=== PATIENT | female | born 2005 | race Caucasian/White ===

== ENCOUNTER 2023-01-06 13:10 | Emergency (ER) | payer OTHER, SELFPAY ==
--- NOTE | ~2023-01-06 | XR_ITS ---
EXAMINATION: XR CHEST CLINICAL INFORMATION: Vomiting. Rule out aspiration. COMPARISON: Chest x-ray 12/05/2018 TECHNIQUE: 2 views of the chest were obtained. FINDINGS: Cardiac silhouette is normal in size. The lungs are adequately aerated. Subtle bibasilar opacities. No lobar consolidation. No pleural effusion or pneumothorax. Surgical clips project over the superior mediastinum. No acute osseous abnormality. XR/XR chest 2V IMPRESSION: Subtle bibasilar opacities are nonspecific but suspected to represent atelectasis.
[2023-01-06 13:45] VITALS: BP 117/79; PULSE 101; RESP 18; TEMP 36.6; O2SAT 95; BMI 29.1
--- NOTE | 2023-01-06 13:47 | ED_ITS ---
HPI - General Adult General Chief complaint: Weakness Stated complaint: vomiting seizure Time Seen by Provider: 01/06/23 18:38 Source: family Mode of arrival: ambulatory Limitations: other (Developmental delay) History of Present Illness HPI narrative: 17-year-old female presents from school today with nausea vomiting and possible seizure. Patient was noted to be slightly lethargic. There is no witnessed tonic-clonic activity. Patient's symptoms are moderate to severe in nature. There is no clear relieving or exacerbating features. Patient is compliant with her medications. Mother reports color and demeanor are improving. She is not sure with the child had a seizure or not. Patient is in between providers at this point transitioning from pediatrics to primary care. She is also looking for a neurologist. Related Data Previous Rx's Medication Instructions Recorded Depakote 125 mg tablet,delayed 750 mg PO BID 30 days #360 tabs 01/06/23 release (divalproex) ondansetron 4 mg disintegrating 4 mg PO Q8H PRN nausea and 01/06/23 tablet vomiting #10 tabs Allergies Allergy/AdvReac Type Severity Reaction Status Date / Time blue dye AdvReac Itching Verified 01/06/23 14:10 kiwi AdvReac Itching Verified 01/06/23 14:10 latex AdvReac Itching Verified 01/06/23 14:10 lorazepam [From Ativan] AdvReac Itching Verified 01/06/23 14:10 jennifer AdvReac Itching Verified 01/06/23 14:10 melatonin AdvReac Itching Verified 01/06/23 14:10 pineapple AdvReac Itching Verified 01/06/23 14:10 red dye AdvReac Itching Verified 01/06/23 14:10 sulfur dioxide AdvReac Itching Verified 01/06/23 14:10 Review of Systems Review of Systems: Yes Unobtainable due to mental status PMFSH Social History Social History Alcohol intake: never Smoked in Last 30 Days: No Use of substances other than those prescribed or required for medical reasons: No Advance Directives: No Advance Directives Information Provided: Yes Physical Exam ED Vital Signs: Vital Signs - 24 hr 01/06/23 13:45 01/06/23 18:52 01/06/23 20:04 Temperature 98 F Pulse Rate 101 H 112 H 107 H Respiratory Rate 18 16 16 Blood Pressure 117/79 116/86 114/88 Pulse Oximetry 95 98 Oxygen Delivery Method Room Air BMI result Body Mass Index 29.1 GEN: Alert, syndrome attic appearing HEENT: Normocephalic, atraumatic, normal external ears, nose appears normal, no oropharyngeal edema or exudates Eyes: Normal to appearance Neck: Supple, no lymphadenopathy Respiratory: CTAB Cardiovascular: Regular rate and rhythm, no murmurs rubs or gallops Abdomen: Soft, nontender, nondistended, no guarding, no rebound Back: No CVA tenderness Extremities: No clubbing cyanosis or edema Neurologic: No focal neurologic deficits Skin: No rash Course Course Course Narrative: This is an RME: Additional HPI, ROS, PE not included below will be deferred to primary provider. This is a 43-khif-zcw-female, past medical history seizure disorder on Depakote and developmental delay, presenting to the emergency department for evaluation of lethargy and nausea/vomiting since today. Per mother patient was feeling well over the last couple a days, had a yogurt this morning for breakfast and went to the school. Mother received a phone call from the school nurse at 10:00AM reporting that patient was tired and was vomiting. Mother states that there is a recent medication changes in Depakote - reporting that she has not been taking brand-name but rather generic form of Depakote for the last 2 weeks. There is no report of any known seizure today. Patient is actively vomiting in triage, medicated with Zofran ODT. Pupils are dilated. Mother reports that patient is typically active but however reports she has been very tired since she picked her up from school. Plan: Labs, Zofran 4mg, chest x-ray. 1630 - pt re-evaluated, appears to be more awake, pupils less dilated. Unable to get blood work from patient. Reevaluation(s) Reevaluation #1: Patient is tolerating oral intake well. We attempted to place an IV. We are unsuccessful. We were able to get a chemistry panel and will attempt to get Depakote and Lamictal levels. I have also sent prescription to the patient's pharmacy for 1 month supply of brand-name Depakote. Time: 20:07 Reevaluation #2: Difficult level was appropriate. Patient was able to orally hydrate. We discussed keeping the patient here for an attempt to provide intravenous hydration however, child did not appear to require this. Mother preferred to take her home. She was given a prescription for Depakote brand name only. She was referred to Neurology. Time: 21:32 Medications Administered Discontinued Medications Generic Name Dose Route Start Last Admin Trade Name Gladys PRN Reason Stop Dose Admin Lidocaine HCl 1 appl 01/06/23 14:12 01/06/23 14:30 Lidocaine 4 % Cream Kit TOPICAL 01/06/23 14:13 1 appl ONCE ONE Administration Protocol Ondansetron HCl 4 mg 01/06/23 14:02 01/06/23 14:12 Ondansetron Odt 4 Mg Tab.Rapdis TRANSLINGU 01/06/23 14:03 4 mg ONCE ONE Administration Medical Decision Making Medical Decision Making [facility] Narrative: 17-year-old female with history of seizure disorder, developmental delay presents with possible seizure. Patient had episodes of emesis earlier today. Her mental status is improving close to baseline. Examination revealed no focal deficits. Abdomen was soft and nontender. He has had a difficult time obtaining intravenous access. Patient will orally hydrate. Will send off lab work from a straight stick. Will continue to re-evaluate patient regularly. Will check for electrolyte abnormality, renal dysfunction, Depakote toxicity your low Depakote levels. We will check for any additional contributing features. Differential Diagnosis Differential Diagnoses: The differential diagnosis associated with the presentation includes (Low Depakote levels, Depakote toxicity, electrolyte abnormality, dehydration, gastroenteritis, heat stroke) Seizure disorder Admission/Observation Consideration of admission/observation: Escalation of care including admissi on/observation considered Lab Data [facility] Lab Attestation statement: I reviewed the patient's lab results. 01/06/23 19:46 Labs: Lab Results 01/06/23 01/06/23 01/06/23 Range/Units 19:46 19:46 19:46 Sodium 138 (135-145) mmol/L Potassium 4.9 (3.3-5.1) mmol/L Chloride 102 (96-108) mmol/L Carbon Dioxide 22 (22-29) mmol/L Anion Gap 19 (12-20) BUN 14 (9-16) mg/dL Creatinine 0.59 (0.5-1.4) mg/dL Estim Creat Clear Calc 131.5 Estimated GFR > 60 Random Glucose 93 (60-115) mg/dL Calcium 9.9 (8.4-10.2) mg/dL Phosphorus 4.4 (2.7-4.5) mg/dL Magnesium 1.8 (1.6-2.6) mg/dL Total Bilirubin 0.2 (0.0-1.0) mg/dL Direct Bilirubin < 0.2 (0.0-0.5) mg/dL AST 44 H (5-31) U/L ALT 35 H (0-31) U/L Alkaline Phosphatase 71 (39-117) U/L Total Protein 8.1 H (6.5-8.0) g/dL Albumin 3.8 (3.5-5.0) g/dL Lipase 23 (8-78) U/L TSH 1.07 Cancelled (0.32-4.0) uIU/mL Valproic Acid 52.0 (50.0-100.0) mcg/mL Independent Historian Clinical information obtained from an independent historian. History obtained from or confirmed by: Parent Discharge Plan Discharge Clinical Impression: Seizure disorder Patient Disposition: Home, Self-Care Instructions: Epilepsy (ED) Prescriptions: New divalproex [Depakote] 125 mg tablet,delayed release (DR/EC) 750 mg PO BID 30 Days Qty: 360 0RF Rx Instructions: medically necessary brand only ondansetron 4 mg tablet,disintegrating 4 mg PO Q8H PRN (Reason: nausea and vomiting) Qty: 10 0RF Referrals: David Quiñonez MD [Physician] - Stand Alone Forms: Work/School Release Interventions: ED Discharge Assessment Last Done: 01/06/23 21:03 Discharge Date/Time: 01/06/23 21:04
[2023-01-06] MEDS: Ondansetron ODT 4 MG TAB.RAPDIS TRANSLINGU (14:12)
[2023-01-06] MEDS: Lidocaine 4 % Cream KIT 1 APPL TOPICAL (14:30)
--- NOTE | 2023-01-06 16:52 | PC.NURSE ---
mother came to triage stated her daughter was having a seizure. stating patient not acting her self and was incontinent of urine which she state she never does. went to assess patient and compared to when she first came into triage she is more awake speaking small words looking around no longer vomiting will inform Ivette LÓPEZ in P[facility]
[2023-01-06 18:52] VITALS: BP 116/86; PULSE 112; RESP 16
--- NOTE | 2023-01-06 19:56 | PC.NURSE ---
lido patch given while in waiting room but not documented on OCT. parent estimates it was around 1700.
--- NOTE | 2023-01-06 20:00 | PC.NURSE ---
IV inserted and labs drawn. pt is very difficult stick. awaiting lab results
[2023-01-06 20:04] VITALS: BP 114/88; PULSE 107; RESP 16; O2SAT 98
[2023-01-06 20:29] LABS: Alanine Aminotransferase 35 U/L (0-31); Albumin Level 3.8 g/dL (3.5-5.0); Alkaline Phosphatase 71 U/L (39-117); Anion Gap 19 (12-20); Aspartate Amino Transferase 44 U/L (5-31); Bilirubin Direct < 0.2 mg/dL (0.0-0.5); Bilirubin Total 0.2 mg/dL (0.0-1.0); Blood Urea Nitrogen 14 mg/dL (9-16); Calcium 9.9 mg/dL (8.4-10.2); Carbon Dioxide 22 mmol/L (22-29); Chloride 102 mmol/L (96-108); Creatinine Clr Calc Pharmacy 131.5; Estimated Glomerular Filt Rate > 60; Glucose Random 93 mg/dL (60-115); Lipase 23 U/L (8-78); Magnesium 1.8 mg/dL (1.6-2.6); Phosphorus 4.4 mg/dL (2.7-4.5); Potassium 4.9 mmol/L (3.3-5.1); Sodium 138 mmol/L (135-145); Total Protein 8.1 g/dL (6.5-8.0)
[2023-01-06 20:37] LABS: Thyroid Stimulating Hormone 1.07 uIU/mL (0.32-4.0)
[2023-01-11 23:47] LABS: Lamotrigine Lamictal 19.3 mcg/mL (2.5-15.0)
== END 2023-01-06 21:04 | disposition home or self-care (01) ==
PROVIDERS: Physician Assistant Medical; Emergency Provider Emergency Medicine; PCP Internal Medicine
DX: G40.909 Epilepsy, unspecified, not intractable, without status epilepticus (principal); R11.10 Vomiting, unspecified; Z79.899 Other long term (current) drug therapy
CPT/HCPCS: 36415; 71046; 80048; 80076; 80164; 80175; 83690; 83735; 84100; 84443; 99283; 99284

== ENCOUNTER → 2025-06-20 08:24 | Outpatient (BNVA) | payer MEDICARE, MEDICAID, SELFPAY | PROVIDERS: PCP Internal Medicine; Visit Provider Psychiatry & Neurology Neurology | DX: G40.409 Other generalized epilepsy and epileptic syndromes, not intractable, without status epilepticus (principal); G93.49 Other encephalopathy | CPT/HCPCS: 99212 ==

== ENCOUNTER → 2025-06-20 08:24 | Outpatient (AMB) | payer MEDICARE, MEDICAID, SELFPAY ==
--- OUTSIDE RECORDS SUMMARY | 2021-12-01 16:35 | XMS_ITS | Encounter Summary ---
Author Organization [facility] Address [address] [place] [address] Care Team Providers Care Wide Area Network Engineer Name Role Phone Unknown Primary Care Provider [phone] Encounter Details Date Type Department Care Team (Latest Contact Info) Description 12/01/2021 5:35 PM EDT Hospital Encounter [facility] [address] [address] Shantel Hernandez, [employer] [address] [place] [address] Knee injury, left, initial encounter Social History Tobacco Use Types Packs/Day Years Used Date Smoking Tobacco: Never Assessed Comments Unknown Sex and Gender Information Value Date Recorded Sex Assigned at Not on file Legal Sex Female 5:12 PM EDT Gender Identity Not on file Sexual Orientation Not on file documented as of this encounter Plan of Treatment Not on file documented as of this encounter Procedures Procedure Name Priority Date/Time Associated Diagnosis Comments XR KNEE 3 VIEWS-LEFT STAT 12/01/2021 5:43 PM EDT Knee injury, left, initial encounter documented in this encounter Results * XR Knee 3 views-Left (12/01/2021 5:43 PM EDT) Anatomical Region Laterality Modality Knee Computed Radiogr aphy 12/01/2021 6:00 PM EDT Impressions 12/01/2021 6:01 PM EDT Limited exam due to lack of true view. No gross fracture or deformity. Narrative 12/01/2021 6:01 PM EDT Exam: Left knee. History: fall, swelling. Comparison: None. Technique: AP and bilateral oblique views of the left knee were obtained. Findings: Limited exam as no true lateral view is submitted. No obvious fracture or obvious dislocation. Procedure Note Aubrey Gregg MD - 12/01/2021 Exam: Left knee. History: fall, swelling. Comparison: None. Technique: AP and bilateral oblique views of the left knee wereobtained. Findings: Limited exam as no true lateral view is submitted. No obviousfracture or obvious dislocation. IMPRESSION: Limited exam due to lack of true view. No gross fracture or deformity. [facility] IMG DIAGNOSTIC IMAGING ORDERABLES Final Result documented in this encounter Visit Diagnoses Diagnosis Knee injury, left, initial encounter documented in this encounter Care Teams Wide Area Network Engineer Relationship Specialty Start Date End Date Unknown Unknow Provider Address PCP - General 08/08/21 documented as of this encounter
--- NOTE | 2025-06-20 08:43 | MHC.OFFVIS ---
Intake Visit Reasons: 6m epilepsy Allergies blue dye Adverse Reaction (Verified 01/06/23 14:10) Itching kiwi Adverse Reaction (Verified 01/06/23 14:10) Itching latex Adverse Reaction (Verified 01/06/23 14:10) Itching lorazepam (From Ativan) Adverse Reaction (Verified 01/06/23 14:10) Itching jennifer Adverse Reaction (Verified 01/06/23 14:10) Itching melatonin Adverse Reaction (Verified 01/06/23 14:10) Itching pineapple Adverse Reaction (Verified 01/06/23 14:10) Itching red dye Adverse Reaction (Verified 01/06/23 14:10) Itching sulfur dioxide Adverse Reaction (Verified 01/06/23 14:10) Itching HPI Comments Details: 19 yo ambidextrous woman who born in born in [place], 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 She started having seizures at age 3. Her seizures were either generalized shaking type, or the head tilt and drooling type. Over the years, she has been taking seizures meds. She is presenting with medication refill and management concerns. She suffers from a seizure disorder and has had a history of a severe tonic-clonic seizure, leading to cardiac arrest. She monitors her condition using a pulse oximeter at night. Recently, logistical challenges arose due to a pharmacy communication issue, resulting in a delay of her Depakote prescription refill, although there was an ultimately successful intervention by a pharmacist. Her medications include Depakote, requiring 8 pills twice daily, lamotrigine, midazolam, and clonazepam. A system error caused a miscommunication on the prescription refill, not timely addressed. Additionally, blood work initially scheduled was postponed to August. These events underscore the importance of reliable medication management for her condition. [facility] Social History Alcohol intake: never Review of Systems Narrative - Neurological: Denies recent seizures. Reports use of pulse oximeter for monitoring at night. - Sleep: Reports increased sleep, attributed to recent life changes. - Constitutional: No other specific complaints were made. Physical Exam Neuro Other: Mental Status: she is alert and awake mostly looking at and playing with her tablet. Intermittently, she wanted to touch or play with medical instruments. She was not speaking. Cranial Nerves: CN II: Visual jordan full to confrontation, visual acuity intact. CN III, IV, : Pupils equal, round, reactive to light and accommodation. Extraocular movements are normal. CN V: Facial sensation is normal. CN VII: Facial movements symmetrical. CN VIII: Hearing intact to bedside conversation is normal. CN IX, X: Palate elevates symmetrically. CN XI: Shoulder shrug and head turn symmetrical. CN XII: Tongue midline without atrophy or fasciculations. She was walking cautiously with a walker. Extrapyramidal: Full facial expressions and blinking. No rigidity. Movements are appropriate with no tremor or abnormality. Speech: She did not speak. 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 She also suffered from epilepsy comprising probably of complex partial and secondarily generalized seizures. With combination of medicines, seizures were controlled. She was living with the mother. Prescriptions were refilled. Questions were answered. Labs were requested for level. Mother also brought a form to be filled regarding electrical supply at home. Orders: Orders Liver Panel Today G40.409 - Other generalized epilepsy and epileptic syndromes, not intractable, without status epilepticus Lamotrigine Lamictal Today G40.409 - Other generalized epilepsy and epileptic syndromes, not intractable, without status epilepticus Valproate Today G40.409 - Other generalized epilepsy and epileptic syndromes, not intractable, without status epilepticus Medications: New midazolam 1 spray intranasally one a day as needed; 2 ea 2RF clonazepam 0.5 mg PO TID 270 tabs 1RF Changed From Depakote (divalproex) medically necessary brand only 750 mg (6 x 125 mg) PO BID 90 days 1,080 tabs 0RF NS To Depakote (divalproex) medically necessary brand only 1,000 mg (8 x 125 mg) PO BID 1,440 tabs 1RF 90 days NS Refilled lamotrigine 100 mg orally 2 in am and 1 at night; 270 tabs 1RF Coding Level of Care Code Est Pt Level 4 (55170) Global (59636) Diagnoses Other generalized epilepsy, not intractable, without status epilepticus G40.409 Epilepsy type: other generalized Intractability: not intractable Status epilepticus: without status epilepticus Chronic static encephalopathy G93.49 Time Spent (min) 35
--- OUTSIDE RECORDS SUMMARY | 2025-06-20 08:45 | XMS_ITS | Encounter Summary ---
Author Organization [facility] Address [address] [place] [address] Care Team Providers Care Asic Verification Engineer Name Role Phone Taylor Gonzalez MD Primary Care Provider [phone] Reason for Visit * Reason Comments Medication Refill Encounter Details Date Type Department Care Team (Late st Contact Info) Description 05/04/2021 Refill [facility]rology - [facility] [address], [address] [place], [place] [address] Crissy Gomez MD [address] [place] [address] [address] [place] [phone] Medication Refill Social History Tobacco Use Types Packs/Day Years Used Date Smoking Tobacco: Never Smokeless Tobacco: Never Comments Unknown Sex and Gender Information Value Date Recorded Sex Assigned at Not on file Legal Sex Female 7:09 AM EDT Gender Identity Not on file Sexual Orientation Not on file documented as of this encounter Plan of Treatment Not on file documented as of this encounter Visit Diagnoses Diagnosis Autism spectrum disorder Autistic disorder, current or active state Intellectual disability Unspecified intellectual disabilities DMDD (disruptive mood dysregulation disorder) (HC Code) documented in this encounter Care Teams Asic Verification Engineer Relationship Specialty Start Date End Date Taylor Gonzalez MD [address] [place] [address] PCP - General Pediatrics 10/17/19 documented as of this encounter
--- OUTSIDE RECORDS SUMMARY | 2025-06-20 08:45 | XMS_ITS | Encounter Summary ---
Author Organization [facility] Address [address] [place] [address] Phone Care Team Providers Care Plant Protection Superintendent Name Role Phone Cari Martini DO Primary Care Provider [phone] Encounter Details Date Type Department Care Team (Late st Contact Info) Description 06/09/2017 Conversion Encounter [facility] - [address] [address] Social History Tobacco Use Types Packs/Day Years Used Date Smoking Tobacco: Never Assessed Comments Unknown Sex and Gender Information Value Date Recorded Sex Assigned at Not on file Legal Sex Female 4:26 PM EDT Gender Identity Not on file Sexual Orientation Not on file documented as of this encounter Plan of Treatment Not on file documented as of this encounter Visit Diagnoses Not on filedocumented in this encounter Care Teams Plant Protection Superintendent Relationship Specialty Start Date End Date Cari Martini DO [address] [place] [address] PCP - General Pediatrics 06/09/21 10/29/21 documented as of this encounter
--- OUTSIDE RECORDS SUMMARY | 2025-06-20 08:45 | XMS_ITS | Clinical Summary ---
Author Organization [facility] Address [address] [place] [address] Care Team Providers Care Assembly Person Name Role Phone Unavailable Primary Care Provider Unavailabl e Social History Tobacco Use Types Packs/Day Years Used Date Smoking Tobacco: Never Assessed Sex and Gender Information Value Date Recorded Sex Assigned at Not on file Gender Identity Not on file Sexual Orientation Not on file Plan of Treatment Not on file
--- OUTSIDE RECORDS SUMMARY | 2025-06-20 08:45 | XMS_ITS | Encounter Summary ---
Author Organization [facility] Address [address] [place] [address] Care Team Providers Care Wind Turbine Machinist Name Role Phone Taylor Gonzalez MD Primary Care Provider [phone] Reason for Visit * Reason Comments Medication Refill Encounter Details Date Type Department Care Team (Late st Contact Info) Description 01/08/2021 Refill [facility] Neurology - [facility] [address], [address] [place], [place] [address] Crissy Gomez MD [address] [place] [address] [address] [place] [phone] Medication Refill Social History Tobacco Use Types [...] as of this encounter Visit Diagnoses Diagnosis Partial idiopathic epilepsy with seizures of localized onset, not intractable, without status epilepticus (HC CODE) documented in this encounter Care Teams Wind Turbine Machinist Relationship Specialty Start Date End Date Taylor Gonzalez MD [address] [place] [phone] PCP - General Pediatrics 10/17/19 documented as of this encounter
--- OUTSIDE RECORDS SUMMARY | 2025-06-20 08:45 | XMS_ITS | Encounter Summary ---
Author Organization [facility] Address [address] [place] [address] Care Team Providers Care Medical Laboratory Technician Name Role Phone Yael Horton MD Primary Care Provider [phone] Encounter Details Date Type Department Care Team (Late st Contact Info) Description 06/14/2025 Telephone [place] [facility] [address] [place], [place] [phone] Yael Horton MD [address] [place], [place] Social History Tobacco Use Types Packs/Day Years Used Date Smoking Tobacco: Never Smokeless Tobacco: Never Comments No Sex and Gender Information Value Date Recorded Sex Assigned at Not on file Legal Sex Female 4:59 AM EST Gender Identity Not on file Sexual Orientation Not on file documented as of this encounter Progress Notes * Cierra Ponce - 06/14/2025 11:53 AM EST Patient mother is calling wanting an earlier appointment for a Physical, can't reschedule due to AWV, patient mother would like a call back for a sooner time for 06/21/2025 physical is schedule. Mom found out new school will not let her daughter start without physical, mother just got a late notice. documented in this encounter Plan of Treatment Upcoming Encounters Date Type Department Care Team (Late st Contact Info) Description 06/21/2025 2:00 PM EST Office Visit Adult [address] [phone] Yael Horton MD [address] [place] [address] 08/15/2025 11:30 AM EST Office Visit [address] [phone] Yael Horton MD [address] [place] [address] documented as of this encounter Visit Diagnoses Not on filedocumented in this encounter Care Teams Medical Laboratory Technician Relationship Specialty Start Date End Date Yael Horton MD [address] [place] [address] PCP - General Internal Medicine 06/15/24 documented as of this encounter
--- OUTSIDE RECORDS SUMMARY | 2025-06-20 08:45 | XMS_ITS | Clinical Summary ---
Author Organization [facility] Address [address] [place] [phone] Phone Care Team Providers Care Apartment Rental Agent Name Role Phone Unavailable Primary Care Provider Unavailabl e Allergies Active Allergy Reactions Criticality Noted Date Comments Blue Dyes (Parenteral) 06/22/2021 Gluten Meal GI intolerance,Hives 01/05/2018 Other reaction(s): Other (See Comments) Kiwi Extract Hives High 11/30/2014 Latex Hives,Rash High 11/30/2014 Banana OK Lorazepam Other (see comments) High 11/30/2014 Other reaction(s): Seizures Seizures Other reaction(s): SEIZURES Seizures Seizures Mangifera Indica Hives High 11/30/2014 Melatonin Hives 11/17/2020 Pineapple Hives High 11/30/2014 Red Dye #40 (Allura Red) Other (see comments) High 01/17/2017 ALL dye Other reaction(s): Other (See Comments), Psychosis Other reaction(s): Other (See Comments) Other reaction(s): Other (See Comments) Sulfa Antibiotics GI intolerance,Other (see comments),Nausea And Vomiting 01/17/2017 Other reaction(s): Other (See Comments) Medications Midazolam 5 MG/0.1ML solution Administer 5 sprays (2.5 mg ) per nostril for seizure > 5 minutes 0 Active acetaminophen 500 MG tablet Take 1,000 mg by mouth every 6 hours as needed. Active diazepam rectal kit Insert into the rectum. Active propranolol 20 MG/5ML solutionIndication s:Post-traumatic stress reaction Take 7.5 mL (30 mg total) by mouth 3 (three) times a day. 675 mL 2 Active loratadine 10 MG tabletIndications: Seasonal allergies Take 1 tablet (10 mg total) by mouth daily. 30 tablet 2 Active levonorgestrel-eth inyl estradiol (Levora 0.15/30, 28,) 0.15-30 MG-MCG per tabletIndications: Dysmenorrhea Take 1 tablet by mouth daily. Skip placebo week and continue to next pack. 112 tablet 3 2 Active Divalproex Sodium 125 MG Capsule Delayed Release SprinkleIndication s:Nonintractable generalized idiopathic epilepsy without status epilepticus Take 750 mg by mouth 2 (two) times a day. 360 capsule 2 Active clonazePAM 0.5 MG disintegrating tabletIndications: Panic disorder with agoraphobia Take 1 tablet (0.5 mg total) by mouth 3 (three) times a day. 90 tablet 2 Active doxepin 10 MG/ML solutionIndication s:Chronic insomnia Take 1.5 mL (15 mg total) by mouth nightly. 45 mL 2 Active famotidine 20 MG tabletIndications: Gastroesophageal reflux disease with esophagitis, unspecified whether hemorrhage Take 1 tablet (20 mg total) by mouth daily. 30 tablet 2 Active lamoTRIgine (LaMICtal) 100 MG tabletIndications: Nonintractable generalized idiopathic epilepsy without status epilepticus Take 2 tablets by mouth every morning, and one tablet by mouth every evening 90 tablet 2 Active sertraline 100 MG tabletIndications: Post-traumatic stress reaction Take 1 tablet (100 mg total) by mouth daily. 30 tablet 2 Active mirtazapine 45 MG disintegrating tabletIndications: Chronic insomnia Take 1 tablet (45 mg total) by mouth nightly. 30 tablet 2 Active Active Problems Problem Noted Date Diagnosed Date Anxiety 06/22/2021 Idiopathic generalized epilepsy 12/20/2018 Overview (06/22/2021): Often difficult to control seizures, presumed to be secondary to extreme prematurity (but genetic testing has not been extensive) Assessment & Plan (06/22/2021 8:43 PM EST): Referral to neuro placed previously by Colleen Rodriguez intellectual disabilities 12/20/2018 Overview (06/22/2021): Estimated moderate-severe intellectual disabilities based on estimates of language skills and other daily abilities; formal educational psychological assessment recommended Abnormal electroencephalogram (EEG) 12/04/2018 Overview (06/22/2021): Diffuse slowing with bilateral sharp waves History of prematurity 12/04/2018 Overview (06/22/2021): Reported history of 25-week gestation 25-26 completed weeks of gestation(765.23) 09/26 GERD (gastroesophageal reflux disease) 9 Mild intermittent asthma without complication Autism spectrum disorder 09/26/2018 Overview (06/22/2021): 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 Referral to ENT placed by Colleen Chronic daily headache 01/17/2017 Chronic insomnia 04/02/2015 DMDD (disruptive mood dysregulation disorder) Post-traumatic stress reaction 04/02/2015 Assessment & Plan (06/22/2021 8:54 PM EST): [facility]. Since then increased anxiety. Panic disorder with agoraphobia 04/02/2015 Resolved Problems Problem Noted Date Diagnosed Date Resolved Date Nonverbal 01/31/2006 06/22/2021 Immunizations Immunization Administration Dates Next Due DTaP 10/04/2007 DTaP 5 04/16/2005,04/21/2004,02/07/2004 ,2003 Hep A, ped/adol 04/08/2010 Hep B, ped/adol 04/21/2004,02/17/2004,2003 Hib (PRP-T) 02/22/2005,05/20/2004,02/07/2004 ,2003 IPV 10/04/2007,04/21/2004,02/07/2004 ,2003 Influenza, injectable, trivalent 04/08/2010,04/09 MMR 10/04/2007,02/22/2005 Pneumococcal Conjugate 11/20/2004,05/20/2004,07/2004,2003 Varicella 10/04/2007,09/07/2004 Family History Relation Name Status Comments Brother Alive Brother: Alive and well Father Alive Father: Alive a nd well Mother Alive Mother: Alive a nd well Other Family history of Rheumatoid arthritis, Family history of fibromyalgia Social History Tobacco Use Types Packs/Day Years Used Date Smoking Tobacco: Never Assessed Comments Unknown Sex and Gender Information Value Date Recorded Sex Assigned at Not on file Legal Sex Female 4:26 PM EDT Gender Identity Not on file Sexual Orientation Not on file Last Filed Vital Signs Vital Sign Reading Time Taken Comments Blood Pressure 116/70 07/06/2021 9:11 AM EST Pulse 79 07/06/2021 9:11 AM EST Temperature - - Respiratory Rate - - Oxygen Saturation - - Inhaled Oxygen Concentration - - Weight 80.7 kg (178 lb) 07/06/2021 9:11 AM EST Height 149.2 cm (4' 10.75 ) 07/06/2021 9:[address] Body Mass Index 36.26 07/06/2021 9:11 AM EST Plan of Treatment Health Maintenance Due Date Last Done Comments Hepatitis A Vaccines (2 of 2 - 2-dose series) 10/06/2010 04/08/2010 DTaP,Tdap,and Td Vaccines (6 - Tdap) 2014 10/04/2007, 04/16/2005, 04/21/2004, Additional history exists HPV Vaccines (1 - 3-dose series) 2018 Men B Vaccine (1 of 2 - Standard) 2019 Influenza Vaccines (#1) 2025 04/08/2010, 05/06 COVID-19 Vaccine (2024- season) 2025 Hepatitis B Vaccines Completed 04/21/2004, 02/17/2004, 2003 Pneumococcal Vaccine Completed 11/20/2004, 05/20/2004, 02/17/2004, Additional history exists HIB Vaccines Completed 02/22/2005, 05/08, 02/07/2004, Additional history exists IPV Vaccines Completed 10/04/2007, 04/08, 02/07/2004, Additional history exists MMR Vaccines Completed 10/04/2007, 02/22/2005 Varicella Vaccines Completed 10/04/2007, 09/07/2004 Meningococcal Vaccine Aged Out No oliver jaime eligible based on patient's age to complete this topic Insurance NON PCC [facility]
--- OUTSIDE RECORDS SUMMARY | 2025-06-20 08:45 | XMS_ITS | Clinical Summary ---
Author Organization [facility] Facility Address [address] [place] [id number] Care Team Providers Care Catering Sous Chef Name Role Phone Unavailable Primary Care Provider Unavailabl e Social History Tobacco Use Types Packs/Day Years Used Date Smoking Tobacco: Never Assessed Comments Unknown Sex and Gender Information Value Date Recorded Sex Assigned at Not on file Legal Sex Female 9:41 AM EDT Gender Identity Not on file Sexual Orientation Not on file Plan of Treatment Health Maintenance Due Date Last Done Comments Pneumococcal Vaccine: Peds ( 0 to 5 Years) and At-Risk Patients (6 to 49 Years) (1 of 2 - PCV) 2022 11/20/2004, 05/20/2004, 02/17/2004, Additional history exists Influenza Vaccine (#1) 2025 04/08/2010, 2007 Hepatitis B Vaccine Completed 04/21/2004, 02/17/2004, 2003 [facility]
--- OUTSIDE RECORDS SUMMARY | 2025-06-20 08:45 | XMS_ITS | Clinical Summary ---
Author Organization [address] Address [address] [place] [phone] Phone Care Team Providers Care Baggage Screener Name Role Phone Yael Horton MD Primary Care Provider [phone] Allergies Active Allergy Reactions Criticality Noted Date Comments Blue Dye 01/25/2023 Kiwi (Actinidia Chinensis) Unknown 3 Latex Unknown 11/23/2022 Lorazepam Unknown 11/23/2022 [place] Unknown 11/23/2022 Rei Flavor 12/24/2022 Melatonin Unknown 11/23/2022 Monosodium Glutamate 01/25/2023 Pineapple Unknown 11/23/2022 Red Dye 01/25/2023 Sulfur Unknown 11/23/2022 Medications albuterol HFA (PROAIR HFA ; PROVENTIL HFA ; VENTOLIN HFA) 90 mcg/actuation inhaler Inhale 2 Puffs into the lungs every 4 hours as needed for Cough or Wheezing. 05/01/20 24 Active hydrocortisone 1 % topical cream Apply 1 Applicator topically 2 times daily. 01/18/20 24 Active lamoTRIgine (LaMICtal) 100 mg tablet Take 2 Tablets by mouth every morning AND 1 Tablet every evening. 01/11/20 24 Active acetaminophen (TYLENOL) 325 mg tablet Take 2 Tablets by mouth every 6 hours as needed for Pain. 07/29/20 23 Active UNABLE TO FIND Misc. Devices (Breathe Ease Pulse Oximeter) Misc, 1 Each by Does not apply route as needed for Other (for shortness of breath or drowsiness.). 07/15/20 23 Active sodium chloride-aloe vera ([address] Saline) gel topical gel 07/04/20 23 Active divalproex (Depakote Sprinkles) 125 mg capsule Take 8 Capsules by mouth 2 times daily. 05/20/20 Active lidocaine-prilocai ne (EMLA) 2.5-2.5 % cream Apply 2.5 oz topically to area prior to venipuncture 02/23/20 23 Active Levora-28 0.15-0.03 mg per tablet Take 1 tablet by mouth 1 (one) time each day. 84 each 3 02/08/20 25 Active clonazePAM (KlonoPIN) 0.5 mg disintegrating tablet DISSOLVE ONE TABLET BY MOUTH THREE TIMES A DAY 02/05/20 25 Active sertraline (ZOLOFT) 100 mg tablet Take 1 tablet (100 mg total) by mouth 1 (one) time each day. 90 tablet 1 02/13/20 25 Active loratadine (CLARITIN) 10 mg tablet Take 1 tablet (10 mg total) by mouth 1 (one) time each day. 90 tablet 1 02/13/20 25 Active mirtazapine (REMERON) 45 mg tablet TAKE 1 TABLET BY MOUTH EVERYDAY AT BEDTIME 30 tablet 4 02/20/20 25 Active famotidine (PEPCID) 20 mg tablet TAKE 1 TABLET BY MOUTH EVERY DAY WITH BREAKFAST 90 tablet 1 02/22/20 25 Active Active Problems Problem Noted Date Diagnosed Date History of ovarian cyst 01/15/2025 Assessment & Plan (01/15/2025 4:31 PM EDT): I discussed with the patient and her mother, Renata, that cysts can come and go over time. Most of them are simple and even if they cause temporary pain, usually resolve on their own and do not require surgical intervention. I explained that OCP generally helps suppress formation. In the absence of sx, no need to image, but given Steph's minimally verbal status, her mother would like to make sure nothing is going on. I explained this is reasonable. Will reorder US. She will continue combined OCP for now. No evidence of contraindications, but I did explain she should likely discuss with Steph's PCP to get her checked out from a cardiac standpoint as active heart disease would be a contraindication to use of estrogen. She agreed. Bilateral foot-drop 05/20/2023 Chronic rhinitis 05/20/2023 Cyst of ovary 05/20/2023 Nocturnal hypoxia 05/20/2023 Nystagmus 05/20/2023 Subclinical hypothyroidism 03/16/2023 Anxiety 12/24/2022 Autism spectrum disorder 12/24/2022 Chronic insomnia 12/24/2022 Delay in development 12/24/2022 DMDD (disruptive mood dysregulation disorder) (C [place] V24) 12/24/2022 Gastroesophageal reflux disease 12/24/2022 Hearing loss of right ear 12/24/2022 Intellectual disability 12/24/2022 Mild intermittent asthma without complication Panic disorder with agoraphobia 12/24/2022 Partial symptomatic epilepsy with complex partial seizures, intractable, without status epilepticus (CMS/HCC V24, CMS/HCC V28) 12/24/2022 Seizures (CMS/HCC V24, CMS/HCC V28) 12/24/2022 Encounters Date Type Department Care Team Description 06/14/2025 Telephone Adult Medicine [address] [phone] Yael Horton MD 05/23/2025 Telephone Adult Medicine [address] [phone] [place] from Last 3 Months Social History Tobacco Use Types Packs/Day Years Used Date Smoking Tobacco: Never Smokeless Tobacco: Never Tobacco Cessation:Counseling Given: Not Answered Comments No Sex and Gender Information Value Date Recorded Sex Assigned at Not on file Legal Sex Female 4:59 AM EST Gender Identity Not on file Sexual Orientation Not on file Obstetrics History Para Term AB IAB SAB Ectopic Multiple Livin g Live Births 0 0 0 0 0 0 0 0 Last Filed Vital Signs Vital Sign Reading Time Taken Comments Blood Pressure 102/58 02/12/2025 10:50 AM EDT Pulse 100 02/12/2025 10:50 AM EDT Temperature 36.4 C (97.5 F) 02/12/2025 10:50 AM EDT Respiratory Rate 14 02/12/2025 10:50 AM EDT Oxygen Saturation 98% 02/12/2025 10:50 AM EDT Inhaled Oxygen Concentration - - Weight 69.4 kg (153 lb) 02/12/2025 10:50 AM EDT Height 144.8 cm (4' 9 ) 02/12/2025 10:50 AM EDT Body Mass Index 33.11 02/12/2025 10:50 AM EDT Plan of Treatment Upcoming Encounters Date Type Department Care Team (Late st Contact Info) Description 06/21/2025 2:00 PM EST Office Visit Adult Medicine [address] [phone] Yael Horton MD [address] [place] [address] 08/15/2025 11:30 AM EST Office Visit Adult Medicine [address] [phone] Yael Horton MD [address] [place] [address] Health Maintenance Due Date Last Done Comments Gonorrhea/Chlamydia Screening 2003 Pneumococcal Vaccine: Pediatrics (0 to 5 Years) and At-Risk Patients (6 to 49 Years) (1 of 1 - PPSV23, PCV20, or PCV21) 2009 11/20/2004, 05/20/2004, 02/17/2004, Additional history exists Hepatitis A Vaccines (2 of 2 - 2-dose series) 10/06/2010 04/08/2010 DTaP,Tdap,and Td Vaccines (6 - Tdap) 2014 10/04/2007, 04/16/2005, 04/16/2005, Additional history exists HPV Vaccines (1 - 3-dose series) 2018 Meningococcal B Vaccine (1 of 2 - Standard) 2019 Annual Well Child Visit (3-21 years old) 07/11/2022 06/22/2021 HIV Screening 07/11/2022 Hepatitis C Screening 07/11/2022 Medicare Annual Wellness Visit 07/11/2022 Social Influencers of Health Screening 07/11/2022 Depression Screening 08/08/2024 05/03/2024 Cervical Cancer Screening: Pap Smear 2024 COVID-19 Vaccine ( season) 2025 Influenza Vaccine (#1) 2025 04/08/2010, 2007 Cholesterol Screening (Lipid Panel) 03/15/2028 03/15/2023 RSV Immunization Adult Patients (1 - 1-dose 75+ series) 2078 Hepatitis B Vaccines Completed 04/21/2004, 02/17/2004, 2003 HIB Vaccines Completed 02/22/2005, 05/08, 02/07/2004, Additional history exists IPV Vaccines Completed 10/04/2007, 04/08, 02/07/2004, Additional history exists MMR Vaccines Completed 10/04/2007, 02/22/2005 Varicella Vaccines Completed 10/04/2007, 09/07/2004 Meningococcal ACWY Vaccine Aged Out N o longer eligible based on patient's age to complete this topic RSV Immunization Patients Under 20 months Aged Out No longer eligible based on patient's age to complete this topic Procedures Procedure Name Priority Date/Time Associated Diagnosis Comments DEPRESSION SCREENING Routine 05/03/2024 LIPID PANEL Routine 03/15/2023 from Last 3 Months or Most Recently Relevant to Health Maintenance Results * Depression Screening (05/03/2024) Pathologist [facility] Depression Screening abstracted Historical Provider HEALTH MAINTENANCE Final Result * (ABNORMAL) Lipid panel (03/15/2023) Pathologist [facility] LDL/HDL Ratio 5(A) 0 - 4 Triglycerides 253(A) 0 - 150 mg/dL Cholesterol 171 0 - 200 mg/dL HDL 33(A) >=40 mg/dL LDL Cholesterol 88 0 - 100 mg/dL Blood Venous blood specimen / Unknown us Historical Provider LAB BLOOD ORDERABLES Mohini l Result from Last 3 Months or Most Recently Relevant to Health Maintenance Insurance [place]IC[place] [employer] Care Teams Baggage Screener Relationship Specialty Start Date End Date Yael Horton MD [address] [place] [phone] PCP - General Internal Medicine 06/15/24
--- OUTSIDE RECORDS SUMMARY | 2025-06-20 08:45 | XMS_ITS | Clinical Summary ---
Author Organization [facility] [place] Address [address] [place] [address] Care Team Providers Care Computer Field Technician Name Role Phone Taylor Gonzalez MD Primary Care Provider [phone] Allergies Active Allergy Reactions Criticality Noted Date Comments Blue Dye Other (See Comments) Medium 01/17/2017 Gluten GI Upset 01/05/2018 Kiwi Hives High 11/30/2014 Latex Hives High 11/30/2014 Lorazepam Seizures 11/30/2014 Seizures Rei Hives High 11/30/2014 Melatonin Mental Status Change 11/10/2021 Pineapple Hives High 11/30/2014 Red Dye Mental Status Change 01/17/2017 Sulfa (Sulfonamide Antibiotics) GI Upset 01/17/2017 Medications * This document contains information received from the source organization and may not represent a complete record from that organization. sertraline (ZOLOFT) 100 MG tabletIndications :Autism spectrum disorder,Intellec tual disability,DMDD (disruptive mood dysregulation disorder) (HC Code) Take 0.5 tablets (50 mg total) by mouth daily 45 tablet 3 9 Active Miscellaneous Medical Supply Misc Pulse oximeter for home use. Oxygen for home use, set to 3 L, PRN seizure. Suction equipment and tube. 1 each 9 Active Miscellaneous Medical Supply Misc Pull ups Medical grade gloves Disposable pads. 150 each 4 9 Active albuterol (PROVENTIL HFA;VENTOLIN HFA;PROAIR HFA) 90 mcg/actuation HFA inhalerIndication s:Mild intermittent asthma without complication Inhale 2 puffs into the lungs every 6 (six) hours as needed for Wheezing 1 Inhaler 9 Active Miscellaneous Medical Supply Misc Disposable gloves, medium 400 each 9 Active Miscellaneous Medical Supply Misc Large pullups. Change 8 times per day. 240 each 9 Active propranolol (INDERAL) 20 mg/5 mL (4 mg/mL) solutionIndicatio ns:Autism spectrum disorder,Intellec tual disability,DMDD (disruptive mood dysregulation disorder) (HC Code) Take 7.5 mLs (30 mg total) by mouth 3 (three) times daily 675 mL 2 9 Active Miscellaneous Medical Supply MiscIndications:U rinary incontinence, unspecified type Pullup Sm/Med Quantity 240 Changes 8 times a day 11 refills 240 each 9 Active levonorgestrel-et hinyl estradiol (NORDETTE) 0.15-0.03 mg per tabletIndications :Cyst of ovary, unspecified laterality Take 1 tablet by mouth daily Continuous, no placebo 28 tablet 2 9 Active doxepin (SINEQUAN) 10 mg/mL solutionIndicatio ns:Autism spectrum disorder,Intellec tual disability,DMDD (disruptive mood dysregulation disorder) (HC Code) TAKE 1ML BY MOUTH NIGHTLY 30 mL 9 9 Active Additional Information Patient taking differently: 12 mg, Reported on 07/17/2020 raNITidine (ZANTAC) 15 mg/mL syrupIndications: Autism spectrum disorder,Intellec tual disability,DMDD (disruptive mood dysregulation disorder) (HC Code) TAKE 5ML (75MG) BY MOUTH TWICE A DAY 473 mL 1 9 Active Additional Information Patient not taking.Reported on 07/17/2020 famotidine (PEPCID) 20 mg tablet Take 20 mg by mouth daily. Active mirtazapine (REMERON) 45 mg tablet Take 45 mg by mouth nightly. Active clonazePAM (KLONOPIN) 0.5 mg tabletIndications :Partial idiopathic epilepsy with seizures of localized onset, not intractable, without status epilepticus (HC CODE) Take 1 tablet (0.5 mg total) by mouth 3 (three) times daily. 270 tablet 1 0 Active pyridoxine, vitamin B6, (B-6) 100 mg tabletIndications :Partial idiopathic epilepsy with seizures of localized onset, not intractable, without status epilepticus (HC CODE) Take 1 tablet (100 mg total) by mouth daily. 90 tablet 1 0 Active divalproex sprinkle (DEPAKOTE SPRINKLES) 125 mg capsuleIndication s:Partial idiopathic epilepsy with seizures of localized onset, not intractable, without status epilepticus (HC CODE) Take 6 capsules (750 mg total) by mouth 2 (two) times daily. 1080 capsule 1 Active loratadine (CLARITIN) 10 mg tablet Take 10 mg by mouth daily. Active DEPAKOTE SPRINKLES 125 mg capsuleIndication s:Partial idiopathic epilepsy with seizures of localized onset, not intractable, without status epilepticus (HC CODE) Take 6 capsules (750 mg total) by mouth 2 (two) times daily. 1080 capsule 1 2 Active lamoTRIgine (LAMICTAL) 100 mg immediate release tabletIndications :Autism spectrum disorder,Intellec tual disability,DMDD (disruptive mood dysregulation disorder) (HC Code) Take 2 tablets (200 mg total) by mouth every morning AND 1 tablet (100 mg total) nightly. 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 03/16/2018 Rapid weight gain 02/27/2018 Family history of polycystic ovarian disease 05/2017 History of ovarian cyst 06/17/2017 Hearing loss in right ear 06/13/2017 Intellectual disability 01/31/2017 Chronic daily headache 01/17/2017 Increasing frequency of seizure activity (HC Cod e) 01/17/2017 Chronic insomnia 04/02/2015 DMDD (disruptive mood dysregulation disorder) Panic disorder with agoraphobia 04/02/2015 Post-traumatic stress reaction 04/02/2015 Nonverbal 01/31/2006 Immunizations Immunization Administration Dates Next Due DTaP 10/04/2007, 5,04/21/2004,2003,2003 Hep A, ped/adol, 2 dose 04/08/2010 Hep B, adolescent or pediatric 04/21/2004,2003,2003 Hib (PRP-T) 02/22/2005, 4,02/07/2004,2003 Influenza, trivalent, inject able, contains preservative 04/08/2010 MMR 10/04/2007,02/22/2005 Pneumococcal conjugate PCV 7 11/18/2004, 05/20/2004,02/07/2004,2003 Polio (IPV) 10/04/2007,04/21/2004,02/07/2004 Varicella, live 10/04/2007,09/07/2004 Social History Tobacco Use Types Packs/Day Years Used Date Smoking Tobacco: Never Smokeless Tobacco: Never Comments Unknown Sex and Gender Information Value Date Recorded Sex Assigned at Not on file Legal Sex Female 7:09 AM EDT Gender Identity Not on file Sexual Orientation Not on file Last Filed Vital Signs Vital Sign Reading Time Taken Comments Blood Pressure 107/70 07/17/2020 10:10 AM EST Pulse 96 07/17/2020 10:10 AM EST Temperature 36.1 C (97 F) 07/17/2020 10:10 AM EST Respiratory Rate 20 10/08/2018 7:30 PM EST Oxygen Saturation 98% 10/08/2018 7:3 0 PM EST Inhaled Oxygen Concentration - - Weight 74.8 kg (165 lb) 11/10/2021 8:37 AM EDT provided by mom. weighed 11/06/21 at production expert's office Height 150 cm (4' 11.06 ) 07/17/2020 10 :10 AM EST Body Mass Index - - Plan of Treatment Health Maintenance Due Date Last Done Comments Hepatitis A Vaccines (2 of 2 - 2-dose series) 10/06/2010 04/08/2010 DTaP/TDaP Vaccines (6 - Tdap) 2014 10/04/2007, 04/16/2005, 04/21/2004, Additional history exists HIV screening 2016 HPV vaccine series (1 - 3-dose series) 2018 Meningococcal B Vaccine (1 of 2 - Standard) 2019 Chlamydia screening 2020 Hepatitis C screening 2021 Tetanus adult (Td q 10,TDAP once) 2023 10/04/2007, 04/16/2005, 04/21/2004, Additional history exists Cervical cancer screening 2024 Influenza Vaccine Pediatric (#1) 2025 04/08/2010, 05/06/2008 Covid-19 vaccine series ( season) 2025 RSV Immunization (1 - 1-dose 75+ series) 2078 Hepatitis B vaccine series Completed 04/21, 04/21/2004, 02/17/2004, Additional history exists Pneumococcal Vaccine (2 - 49 years) Aged Out 11/18/2004, 05/20/2004, 02/07/2004, Additional history exists No longer eligible based on patient's age to complete this topic HIB Vaccines Completed 02/22/2005, 05/08, 02/07/2004, Additional history exists IPV Vaccines Completed 10/04/2007, 04/08, 04/21/2004, Additional history exists MMR Vaccines Completed 10/04/2007, 02/22/2005 Varicella Vaccines Completed 10/04/2007, 09/07/2004 Meningococcal Vaccine Aged Out No oliver jaime eligible based on patient's age to complete this topic Rotavirus Vaccines Aged Out No longer eligible based on patient's age to complete this topic Insurance [place] Care Teams Computer Field Technician Relationship Specialty Start Date End Date Taylor Gonzalez MD [address] [facility] [place] [address] PCP - General Pediatrics 10/17/19
--- OUTSIDE RECORDS SUMMARY | 2025-06-20 08:45 | XMS_ITS | Encounter Summary ---
Author Organization [facility] Address [address] [place] [address] Care Team Providers Care Test Engineer Nuclear Equipment Name Role Phone Taylor Gonzalez MD Primary Care Provider [phone] Encounter Details Date Type Department Care Team (Late st Contact Info) Description 11/12/2021 Scanned Document INTERFACE DEFAULT [address] [place] [id number] System, Provider Not In Social History Tobacco Use Types Packs/Day Years [...] on filedocumented in this encounter Care Teams Test Engineer Nuclear Equipment Relationship Specialty Start Date End Date Taylor Gonzalez MD [address] [place] [address] PCP - General Pediatrics 10/17/19 documented as of this encounter
--- OUTSIDE RECORDS SUMMARY | 2025-06-20 08:45 | XMS_ITS | Clinical Summary ---
Author Organization [facility] Address [address] [place] [address] Care Team Providers Care Body And Fender Worker Name Role Phone Unknown Primary Care Provider [phone] Allergies Active Allergy Reactions Criticality Noted Date Comments Lorazepam Hives Medium 12/01/2021 Medications acetaminophen (TYLENOL) 500 MG tablet Take 1,000 mg by mouth. Active ProAir HFA 108 (90 Base) MCG/ACT inhaler Inhale 2 puffs 4 times daily (every 6 hours) as needed. 2 Active clonazePAM (KlonoPIN) 0.25 MG disintegrating tablet Take by mouth. Active diazepam (DIASTAT ACUDIAL) 20 MG rectal gel Insert into the rectum. Active divalproex (DEPAKOTE SPRINKLE) 125 MG capsule Take 750 mg by mouth. 1 Active doxepin (SINEquan) 10 MG/ML solution Take 15 mg by mouth. 2 Active famotidine (PEPCID) 20 MG tablet Take 20 mg by mouth. 1 Active FLUoxetine (PROzac) 20 MG capsule Take by mouth. Active lamoTRIgine (LaMICtal) 100 MG tablet Take by mouth. 1 Active levonorgestrel-ethi nyl estradiol (NORDETTE) 0.15-30 MG-MCG per tablet Take 1 tablet by mouth daily. 1 Active loratadine (CLARITIN) 10 MG tablet Take 10 mg by mouth. 1 Active OXcarbazepine (TRILEPTAL) 150 MG tablet Take by mouth. Active mirtazapine (REMERON ANKITA-TAB) 15 MG disintegrating tablet Take by mouth. Active propranolol (INDERAL) 20 MG/5ML solution Take 30 mg by mouth. 1 Active pyridoxine (B-6) 100 MG tablet Take 100 mg by mouth. Active ranitidine (ZANTAC) 75 mg/5 mL syrup Take 75 mg by mouth. Active sertraline (ZOLOFT) 100 MG tablet Take 100 mg by mouth daily. Active Active Problems No known active problems Social History Tobacco Use Types Packs/Day Years Used Date Smoking Tobacco: Never Assessed Comments Unknown Sex and Gender Information Value Date Recorded Sex Assigned at Not on file Legal Sex Female 5:12 PM EDT Gender Identity Not on file Sexual Orientation Not on file Last Filed Vital Signs Vital Sign Reading Time Taken Comments Blood Pressure 114/80 07/07/2022 10:08 AM EST Pulse 96 07/07/2022 10:08 AM EST Temperature 35.6 C (96.1 F) 07/07/2022 10:08 AM EST Respiratory Rate - - Oxygen Saturation 96% 07/07/2022 10:08 AM EST Inhaled Oxygen Concentration - - Weight - - Height - - Body Mass Index - - Plan of Treatment Health Maintenance Due Date Last Done Comments Hepatitis C Virus Screening 2003 HIV Screening 2016 HPV Vaccines (1 - 3-dose series) 2018 DTaP/Tdap/Td Vaccines (1 - Tdap) 2022 Hepatitis B Vaccines (1 of 3 - 19+ 3-dose series) 2022 Pap Smear (Ages 21-65) 2024 Influenza Vaccine 03/08/2025 04/08/2010, 04/08/2010, 05/06/2008 COVID-19 Vaccine (2023-2 5 season) 2025 Pneumococcal Vaccine: Pediatric (0-5 Years) and At-Risk Patients (6 to 49 Years) Aged Out No longer eligible b ased on patient's age to complete this topic Insurance [facility] Care Teams Body And Fender Worker Relationship Specialty Start Date End Date Unknown Unknow Provider Address PCP - General 08/08/21
--- OUTSIDE RECORDS SUMMARY | 2025-06-20 08:46 | XMS_ITS | Clinical Summary ---
Author Organization [facility] Address [address] [place] [address] Care Team Providers Care Project Geophysicist Name Role Phone Ref, Has No Pcp Or Primary Care Provider Unavail able Allergies Active Allergy Reactions Criticality Noted Date Comments Lorazepam Seizure High 05/15/2021 Blue Dye Rash 05/15/2021 Latex Rash 05/15/2021 Melatonin Hives 05/15/2021 Red Dye Psychosis 05/15/2021 Sulfa (Sulfonamide Antibiotics) Vomiting 1003/2021 Medications famotidine (PEPCID) 20 mg tablet Take 1 tablet (20 mg total) by mouth in the morning. 30 tablet 07/29/2021 7:12 PM EST 1 Active clonazePAM (KlonoPIN) 0.5 mg disintegrating tablet Dissolve 1 tablet (0.5 mg total) in the mouth 3 times a day. 90 tablet 07/29/2021 7:12 PM EST 1 Active mirtazapine (REMERON) 45 mg tablet Take 1 tablet (45 mg total) by mouth every evening. 30 tablet 1 Active propranoloL (INDERAL) 20 mg/5 mL (4 mg/mL) solution Take 7.5 mL (30 mg total) by mouth 3 times a day. 675 mL 08/03/2021 10:37 AM EST 1 Active sertraline (ZOLOFT) 100 mg tablet Take 1 tablet (100 mg total) by mouth once a day. 30 tablet 1 Active divalproex sprinkle (DEPAKOTE SPRINKLE) 125 mg capsule Take 6 capsules (750 mg total) by mouth 2 times a day. 360 capsule 1 07/29/2021 7:12 PM EST 1 Active famotidine (PEPCID) 20 mg tablet Take 1 tablet (20 mg total) by mouth daily. 30 tablet 1 Active levonorgestreL-ethi nyl estrad (DIANA 28) 0.15-0.03 mg per tablet Take 1 tablet by mouth daily. 56 tablet 08/03/2021 10:34 AM EST 1 Active mirtazapine (REMERON) 45 mg tablet Take 1 tablet (45 mg total) by mouth nightly. 30 tablet 07/29/2021 7:12 PM EST 1 Active propranoloL (INDERAL) 20 mg/5 mL (4 mg/mL) solution Take 7.5 mL (30 mg total) by mouth 3 times a day. 675 mL 1 Active sertraline (ZOLOFT) 100 mg tablet Take 1 tablet (100 mg total) by mouth daily. 30 tablet 07/29/2021 7:12 PM EST 1 Active clonazePAM (KlonoPIN) 0.5 mg disintegrating tablet Dissolve 1 tablet (0.5 mg total) in the mouth 3 times a day. 90 tablet 1 Active lamoTRIgine (LaMICtal) 100 mg tablet Take 2 tablets by mouth every morning, and one tablet by mouth every evening 42 tablet 2 Active clonazePAM (KlonoPIN) 0.5 mg disintegrating tablet Dissolve 1 tablet (0.5 mg total) in the mouth 3 times a day. 90 tablet 2 Active divalproex sprinkle (DEPAKOTE SPRINKLE) 125 mg capsule Take 6 capsules (750 mg total) by mouth 2 times a day. 360 capsule 2 Active doxepin (SINEquan) 10 mg/mL solution Take 1.5 mL (15 mg total) by mouth every evening. 45 mL 2 Active famotidine (PEPCID) 20 mg tablet Take 1 tablet (20 mg total) by mouth once a day. 30 tablet 2 Active lamoTRIgine (LaMICtal) 100 mg tablet Take 2 tablets (200 mg total) by mouth in the morning and 1 tablet by mouth every evening 42 tablet 2 Active loratadine (CLARITIN) 10 mg tablet Take 1 tablet (10 mg total) by mouth once a day. 30 tablet 2 Active propranoloL (INDERAL) 20 mg/5 mL (4 mg/mL) solution Take 7.5 mL (30 mg total) by mouth 3 times a day. 675 mL 2 Active sertraline (ZOLOFT) 100 mg tablet Take 1 tablet (100 mg total) by mouth once a day. 30 tablet 2 Active Social History Tobacco Use Types Packs/Day Years Used Date Smoking Tobacco: Never Smokeless Tobacco: Never Alcohol Use Standard Drinks/Week Comments Never 0 (1 standard drink = 0.6 oz pur e alcohol) Comments Unknown Sex and Gender Information Value Date Recorded Sex Assigned at Not on file Legal Sex Female 7:07 PM EDT Gender Identity Not on file Sexual Orientation Not on file Last Filed Vital Signs Vital Sign Reading Time Taken Comments Blood Pressure 96/59 07/28/2021 5:43 PM EST Pulse 108 07/28/2021 5:43 PM EST Temperature 36.4 C (97.5 F) 07/28/2021 5:43 PM EST Respiratory Rate 20 07/28/2021 5:43 PM EST Oxygen Saturation 97% 07/28/2021 5:43 PM EST Inhaled Oxygen Concentration - - Weight 79.9 kg (176 lb 3.2 oz) 05/15/2021 2:50 P M EDT Height 144.8 cm (4' 9 ) 05/15/2021 2:50 PM EDT Body Mass Index 38.13 05/15/2021 2:50 PM EDT Plan of Treatment Health Maintenance Due Date Last Done Comments HIV Screening 2003 Pap Smear 2003 1 Week [facility] 2003 1 Month [facility] 2003 2 Month [facility] 2003 4 Month [facility] 2003 6 Month [facility] 01/30/2004 9 Month [facility] 04/29/2004 12 Month [facility] 2004 15 Month [facility] 10/26/2004 18 Month [facility] 01/24/2005 24 Month [facility] 07/23/2005 30 Month [facility] 11/26/2005 3 to 21 Year [facility] 2006 Well Child Check 2006 Pneumococcal Vaccine: Pediatric (0-5 Years) and At-Risk Patients (6-50 Years) (1 of 1 - PPSV23, PCV20, or PCV21) 2009 11/20/2004, 05/20/2004, 02/17/2004, Additional history exists DTaP,Tdap,and Td Vaccines (6 - Tdap) 2014 10/04/2007, 04/16/2005, 04/16/2005, Additional history exists HPV Vaccines (1 - 3-dose series) 2018 Alcohol/Substance Use Screening 08/08/2024 COVID-19 Vaccine (1 - 2024- season) 2025 Influenza Vaccine (#1) 2025 04/08/2010, 2007 Hepatitis B Vaccines Completed 04/21/2004, 02/17/2004, 2003 MMR Vaccines Completed 10/04/2007, 02/22/2005 Varicella Vaccines Completed 10/04/2007, 09/07/2004 Meningococcal Vaccine Aged Out No oliver jaime eligible based on patient's age to complete this topic Insurance [facility] MEDICAID [facility] MEDICA[facility] Care Teams Project Geophysicist Relationship Specialty Start Date End Date Ref, Has No Pcp Or DO NOT EDIT THIS RECORD VIA PROVIDER ON THE FLY PCP - General Dextrine Mixer 05/15/21
== END ==
LOC: HO.HSM 08:25
PROVIDERS: PCP Internal Medicine; Visit Provider Psychiatry & Neurology Neurology
DX: G40.409 Other generalized epilepsy and epileptic syndromes, not intractable, without status epilepticus (principal); G93.49 Other encephalopathy
CPT/HCPCS: 99214; G2211